=== PATIENT | male | born 1985 | race Caucasian/White ===

== ENCOUNTER 2017-07-29 14:39 | Outpatient (CLI) | payer OTHER ==
[~2017-07-29 14:39] MED LIST: DICLOFENAC SODI50 MG PO; KETO10TA2 PO; LEVAQUIN750 MG PO; NEURONTIN800 MG PO; PERCOCET 5-3251 EACH PO
== END 2017-07-29 14:43 | disposition home or self-care (01) ==
LOC: RAD 14:39
DX: R53.1 Weakness (principal); R60.0 Localized edema; R10.84 Generalized abdominal pain

== ENCOUNTER 2017-08-02 23:27 | Emergency (ER) | payer OTHER ==
[~2017-08-02] VITALS: Ht 180.3 cm; Wt 72.6 kg
[2017-08-03] MEDS ORDERED: MUPIROCIN22 GM TOP (01:48)
[2017-08-03] MEDS ORDERED: CIPRO500 MG PO (01:48)
== END 2017-08-03 02:07 ==
LOC: ER 23:27
DX: L76.82 Other postprocedural complications of skin and subcutaneous tissue (principal); T81.4XXS Infection following a procedure, sequela; Y83.8 Other surgical procedures as the cause of abnormal reaction of the patient, or of later complication, without mention of misadventure at the time of the procedure

== ENCOUNTER → 2017-09-11 | Emergency (ER) | payer OTHER ==
[~2017-09-11] VITALS: Ht 180.3 cm; Wt 72.6 kg
[~2017-09-11] MED LIST changes: +CIPRO500 MG PO; +MUPIROCIN22 GM TOP
== END | disposition home or self-care (01) ==
LOC: ER 00:54
DX: L02.213 Cutaneous abscess of chest wall (principal)